=== PATIENT | male | born 1975 | race Hispanic/Latino ===

== ENCOUNTER 2019-11-01 18:33 | Emergency (ER) | payer SELFPAY ==
[2019-11-01] MEDS ORDERED: Nitroglycerin 2% Ointment 1 INCH/1 GM Packet ONE (19:01)
[2019-11-01] MEDS ORDERED: Aspirin Chewable 81 MG TAB ONE (19:01)
[2019-11-01 19:25] LABS: #Basophils 0.1 thou/uL (0.0-0.2); #Eosinphils 0.2 thou/uL (0.0-0.7); #Lymphocytes 2.5 thou/uL (1.20-3.40); #Monocytes 0.6 thou/uL (0.11-0.59); #Neutrophils 1.6 thou/uL (1.40-6.50); %Basophils 1.8 % (0.0-1.0); %Eosinophils 3.8 % (0.0-10.0); %Lymphocytes 49.4 % (21.0-51.0); %Monocytes 12.4 % (0.0-10.0); %Neutrophils 32.5 % (42.0-75.0); Hemoglobin 14.8 g/dL (14.0-18.0); Mean Corpuscular HGB CONC 33.8 g/dL (32.0-36.0); Mean Corpuscular Hemoglobin 33.3 pg (27.0-31.0); Mean Corpuscular Volume 98.5 fL (78.0-98.0); Mean Platelet Volume 8.2 fL (7.4-10.4); Platelet Count 172 thou/uL (130-400); RBC Distribution Width 11.5 % (11.5-14.5); Red Blood Cell (RBC) Count 4.44 mill/uL (4.70-6.10)
--- NOTE | 2019-11-01 19:35 | RAD ---
Chest AP view INDICATION: Intermittent chest pain COMPARISON: None FINDINGS: Lungs:The lungs are clear Cardiac silhouette:The cardiomediastinal silhouette appears within normal limits. Pulmonary vasculature:Normal Pleural spaces:No pleural effusion or pneumothorax is demonstrated. Upper abdomen:No abnormality seen. Osseous structures: No acute osseous abnormality. Additional findings:None. IMPRESSION: No acute cardiopulmonary abnormality.
[2019-11-01 19:47] LABS: ALT (SGPT) 87 U/L (8-55); AST (SGOT) 74 U/L (5-34); Albumin 4.5 g/dL (3.5-5.0); Alkaline Phosphatase 67 U/L (40-110); Anion Gap 15 mmol/L (10-20); BUN (Urea Nitrogen) 7 mg/dL (8.9-20.6); Bilirubin, Total 0.4 mg/dL (0.2-1.2); CK (CPK) 280 U/L (30-200); Calc. Creatinine Clearance 0 mL/min (70-130); Calcium 8.8 mg/dL (7.8-10.44); Carbon Dioxide 24 mmol/L (22-29); Chloride 103 mmol/L (98-107); Estimated GFR-MDRD Greater than 90; Globulin 3.4 g/dL (2.4-3.5); Glucose 97 mg/dL (70-105); Lipase 97 U/L (8-78); Potassium 3.8 mmol/L (3.5-5.1); Protein, Total 7.9 g/dL (6.0-8.3); Sodium 138 mmol/L (136-145)
--- NOTE | 2019-11-01 22:03 | ULT ---
RIGHT UPPER QUADRANT ULTRASOUND CLINICAL HISTORY: Chest pain with elevated lipase and LFTs. COMPARISON: None FINDINGS: Liver:There is diffuse fatty infiltration of the liver Intrahepatic bile ducts: No intrahepatic or extrahepatic biliary dilation.; Common bile duct: 4.8 mm. Gallbladder: Normal appearing. Wyatt's sign:None Main portal vein:Patent with hepatopedal flow. Pancreas:Visualized pancreas appears normal. Right kidney: Right kidney measures 10.9 x 4.9 x 5.5 cm. No focal renal lesion or hydronephrosis. Additional findings: None. IMPRESSION: Fatty liver
== END 2019-11-01 22:20 | disposition home or self-care (01) ==
LOC: ERS 18:33
DX: R07.89 Other chest pain (principal); F10.10 Alcohol abuse, uncomplicated; I10 Essential (primary) hypertension
CPT/HCPCS: 36415; 71045; 76705; 80053; 82550; 83690; 84484; 85025; 93005

== ENCOUNTER 2021-04-01 16:25 | Inpatient (IN) | payer SELFPAY ==
[2021-04-01] MEDS ORDERED: HYDROcodone/Acetaminophen 10/325 mg Tablet ONE (17:04)
[2021-04-01 17:26] LABS: #Lymphocytes 0.8 thou/uL (1.20-3.40); #Monocytes 0.6 thou/uL (0.11-0.59); #Neutrophils 6.1 thou/uL (1.40-6.50); %Basophils 0.4 % (0.0-1.0); %Eosinophils 0.4 % (0.0-10.0); %Lymphocytes 10.5 % (21.0-51.0); %Monocytes 7.5 % (0.0-10.0); %Neutrophils 81.2 % (42.0-75.0); Hemoglobin 12.3 g/dL (14.0-18.0); Mean Corpuscular HGB CONC 36.2 g/dL (32.0-36.0); Mean Corpuscular Hemoglobin 35.7 pg (27.0-31.0); Mean Corpuscular Volume 98.8 fL (78.0-98.0); Mean Platelet Volume 8.1 fL (7.4-10.4); Platelet Count 131 thou/uL (130-400); RBC Distribution Width 11.6 % (11.5-14.5); Red Blood Cell (RBC) Count 3.45 mill/uL (4.70-6.10); White Blood Cell (WBC) Count 7.6 thou/uL (4.8-10.8)
[2021-04-01 17:40] LABS: ALT (SGPT) 79 U/L (8-55); AST (SGOT) 94 U/L (5-34); Albumin 4.1 g/dL (3.5-5.0); Alkaline Phosphatase 60 U/L (40-110); Anion Gap 18 mmol/L (10-20); BUN (Urea Nitrogen) 5 mg/dL (8.9-20.6); Bilirubin, Total 0.4 mg/dL (0.2-1.2); CK (CPK) 647 U/L (30-200); Calc. Creatinine Clearance 0 mL/min (70-130); Calcium 8.1 mg/dL (7.8-10.44); Carbon Dioxide 16 mmol/L (22-29); Chloride 101 mmol/L (98-107); Globulin 3.1 g/dL (2.4-3.5); Glucose 112 mg/dL (70-105); Potassium 3.3 mmol/L (3.5-5.1); Protein, Total 7.2 g/dL (6.0-8.3); Sodium 132 mmol/L (136-145)
[2021-04-01] MEDS ORDERED: Morphine 4 MG/ML VIAL ONE (17:40)
[2021-04-01] MEDS ORDERED: Boostrix 0.5 ML (Tdap) VIAL ONE (17:40)
[2021-04-01 17:43] LABS: PTT 28.7 sec (22.9-36.1); Prothrombin Time 13.3 sec (12.0-14.7)
[2021-04-01] MEDS ORDERED: Dextrose 50% Abboject 50 ML SYRINGE SLOW IVP PRN (19:09)
[2021-04-01] MEDS ORDERED: traMADol HCl 50 MG TAB PO PRN (19:09)
[2021-04-01] MEDS ORDERED: hydrALAZINE 20 MG/ML VIAL SLOW IVP PRN (19:09)
[2021-04-01] MEDS ORDERED: Ondansetron PF 4 MG/2 ML Vial IVP PRN ×2 (19:09→19:15)
[2021-04-01] MEDS ORDERED: Dextrose 5% in Water 1,000 ML IV PRN (19:09)
[2021-04-01] MEDS ORDERED: Morphine 2 MG/ML VIAL SLOW IVP PRN (19:09)
[2021-04-01] MEDS ORDERED: Ondansetron ODT 4 MG TAB PO PRN (19:09)
[2021-04-01] MEDS ORDERED: Ondansetron ODT 4 MG TAB SL PRN (19:15)
[2021-04-01] MEDS ORDERED: D5 1/2 NS w/20 mEq KCL 1,000 ML IV SCH (19:15)
[2021-04-01] MEDS: Ibuprofen 200 MG TAB PO SCH (21:02)
[2021-04-01] MEDS: Oxazepam 10 MG CAP PO SCH (21:03)
[2021-04-01] MEDS: Famotidine 20 MG TAB PO SCH (21:03)
[2021-04-01] MEDS ORDERED: Potassium Chloride 20 MEQ in Premix Bag 1 BAG IVPB SCH (23:00)
[2021-04-01] MEDS: Sodium Chloride 0.9% 1,000 ML IV SCH (23:28)
[2021-04-01] MEDS ORDERED: Sodium Chloride 0.9% 1,000 ML IV SCH (23:55)
[2021-04-02] MEDS: Acetaminophen 325 MG TAB PO SCH ×5 (00:07→23:51)
[2021-04-02] MEDS: traMADol HCl 50 MG TAB PO PRN (03:55)
[2021-04-02] MEDS: Cyclobenzaprine 10 MG TAB PO PRN ×2 (03:55→23:52)
[2021-04-02] MEDS: Oxazepam 10 MG CAP PO SCH ×3 (05:19→20:59)
[2021-04-02] MEDS: Ibuprofen 200 MG TAB PO SCH ×3 (05:20→20:59)
[2021-04-02] MEDS: Sodium Chloride 0.9% 1,000 ML IV SCH (05:29)
[2021-04-02 06:22] LABS: #Lymphocytes 0.8 thou/uL (1.20-3.40); #Monocytes 0.7 thou/uL (0.11-0.59); #Neutrophils 3.2 thou/uL (1.40-6.50); %Basophils 0.8 % (0.0-1.0); %Monocytes 14.3 % (0.0-10.0); Hemoglobin 12.3 g/dL (14.0-18.0); Mean Corpuscular HGB CONC 36.3 g/dL (32.0-36.0); Mean Corpuscular Hemoglobin 35.7 pg (27.0-31.0); Mean Corpuscular Volume 98.6 fL (78.0-98.0); Mean Platelet Volume 8.7 fL (7.4-10.4); Platelet Count 108 thou/uL (130-400); RBC Distribution Width 11.7 % (11.5-14.5); Red Blood Cell (RBC) Count 3.43 mill/uL (4.70-6.10); White Blood Cell (WBC) Count 4.8 thou/uL (4.8-10.8)
[2021-04-02 06:32] LABS: Anion Gap 15 mmol/L (10-20); BUN (Urea Nitrogen) 4 mg/dL (8.9-20.6); Calc. Creatinine Clearance 0 mL/min (70-130); Calcium 7.8 mg/dL (7.8-10.44); Carbon Dioxide 22 mmol/L (22-29); Chloride 96 mmol/L (98-107); Glucose 110 mg/dL (70-105); Potassium 3.2 mmol/L (3.5-5.1); Sodium 130 mmol/L (136-145)
[2021-04-02 08:30] LABS: SARS-CoV-2 NAA Rapid Test Not Detected (NotDetected)
[2021-04-02] MEDS: Thiamine 100 MG TAB PO SCH (08:59)
[2021-04-02] MEDS: Famotidine 20 MG TAB PO SCH ×2 (08:59→20:59)
[2021-04-02] MEDS: Folic Acid 1 MG TAB PO SCH (08:59)
[2021-04-02] MEDS ORDERED: Sodium Bicarbonate 150 MEQ in Dextrose 5% in Water 1,000 ML IV SCH (23:00)
[2021-04-03 05:28] LABS: #Eosinphils 0.1 thou/uL (0.0-0.7); #Lymphocytes 0.9 thou/uL (1.20-3.40); #Monocytes 0.5 thou/uL (0.11-0.59); #Neutrophils 2.6 thou/uL (1.40-6.50); %Basophils 0.8 % (0.0-1.0); %Eosinophils 2.9 % (0.0-10.0); %Lymphocytes 21.1 % (21.0-51.0); %Monocytes 11.1 % (0.0-10.0); Hemoglobin 12.1 g/dL (14.0-18.0); Mean Corpuscular HGB CONC 35.8 g/dL (32.0-36.0); Mean Corpuscular Hemoglobin 35.5 pg (27.0-31.0); Mean Corpuscular Volume 99.2 fL (78.0-98.0); Mean Platelet Volume 8.8 fL (7.4-10.4); Platelet Count 112 thou/uL (130-400); RBC Distribution Width 11.5 % (11.5-14.5); Red Blood Cell (RBC) Count 3.41 mill/uL (4.70-6.10); White Blood Cell (WBC) Count 4.1 thou/uL (4.8-10.8)
[2021-04-03 05:36] LABS: Anion Gap 14 mmol/L (10-20); BUN (Urea Nitrogen) 7 mg/dL (8.9-20.6); CK (CPK) 632 U/L (30-200); Calc. Creatinine Clearance 0 mL/min (70-130); Calcium 8.7 mg/dL (7.8-10.44); Carbon Dioxide 23 mmol/L (22-29); Chloride 103 mmol/L (98-107); Glucose 131 mg/dL (70-105); Magnesium 2.2 mg/dL (1.6-2.6); Phosphorus 3.6 mg/dL (2.3-4.7); Potassium 3.9 mmol/L (3.5-5.1); Sodium 136 mmol/L (136-145)
[2021-04-03] MEDS: Acetaminophen 325 MG TAB PO SCH ×4 (05:41→23:16)
[2021-04-03] MEDS: Ibuprofen 200 MG TAB PO SCH ×3 (05:42→20:30)
[2021-04-03] MEDS: Oxazepam 10 MG CAP PO SCH ×3 (06:26→23:16)
[2021-04-03] MEDS: traMADol HCl 50 MG TAB PO PRN (08:48)
[2021-04-03] MEDS: Famotidine 20 MG TAB PO SCH ×2 (08:52→23:09)
[2021-04-03] MEDS: Senokot S 8.6-50 MG TAB PO SCH ×2 (08:52→20:31)
[2021-04-03] MEDS: Polyethylene Glycol 3350 17 GM Packet PO SCH (08:52)
[2021-04-03] MEDS: Folic Acid 1 MG TAB PO SCH (08:52)
[2021-04-03] MEDS: Thiamine 100 MG TAB PO SCH (08:53)
[2021-04-03] MEDS: Sodium Chloride 1 GM TAB PO SCH ×3 (08:53→23:16)
[2021-04-03] MEDS ORDERED: CEFAZOLIN 2 GM in Premix Bag 1 BAG IVPB SCH (09:30)
[2021-04-04] MEDS: Acetaminophen 325 MG TAB PO SCH ×4 (05:23→23:35)
[2021-04-04] MEDS: Oxazepam 10 MG CAP PO SCH ×3 (05:24→21:51)
[2021-04-04] MEDS: Ibuprofen 200 MG TAB PO SCH ×3 (05:24→21:50)
[2021-04-04 05:34] LABS: #Basophils 0.1 thou/uL (0.0-0.2); #Eosinphils 0.2 thou/uL (0.0-0.7); #Lymphocytes 1.2 thou/uL (1.20-3.40); #Monocytes 0.7 thou/uL (0.11-0.59); #Neutrophils 2.3 thou/uL (1.40-6.50); %Basophils 1.9 % (0.0-1.0); %Eosinophils 4.4 % (0.0-10.0); %Lymphocytes 26.1 % (21.0-51.0); %Monocytes 14.8 % (0.0-10.0); %Neutrophils 52.8 % (42.0-75.0); Hemoglobin 11.9 g/dL (14.0-18.0); Mean Corpuscular HGB CONC 36.1 g/dL (32.0-36.0); Mean Corpuscular Volume 99.6 fL (78.0-98.0); Mean Platelet Volume 9.1 fL (7.4-10.4); Platelet Count 132 thou/uL (130-400); RBC Distribution Width 11.6 % (11.5-14.5); White Blood Cell (WBC) Count 4.4 thou/uL (4.8-10.8)
[2021-04-04 07:14] LABS: Chloride 103 mmol/L (98-107); Potassium 3.5 mmol/L (3.5-5.1); Sodium 139 mmol/L (136-145)
[2021-04-04 07:15] LABS: Glucose 133 mg/dL (70-105)
[2021-04-04 07:17] LABS: Anion Gap 15 mmol/L (10-20); Carbon Dioxide 25 mmol/L (22-29)
[2021-04-04 07:18] LABS: Calc. Creatinine Clearance 0 mL/min (70-130); Phosphorus 3.8 mg/dL (2.3-4.7)
[2021-04-04 07:19] LABS: BUN (Urea Nitrogen) 6 mg/dL (8.9-20.6)
[2021-04-04 07:20] LABS: Magnesium 1.9 mg/dL (1.6-2.6)
[2021-04-04 07:21] LABS: CK (CPK) 593 U/L (30-200)
[2021-04-04] MEDS: Senokot S 8.6-50 MG TAB PO SCH ×2 (08:32→20:10)
[2021-04-04] MEDS: Polyethylene Glycol 3350 17 GM Packet PO SCH (08:32)
[2021-04-04] MEDS: Sodium Chloride 1 GM TAB PO SCH ×2 (08:49→20:44)
[2021-04-04] MEDS: Thiamine 100 MG TAB PO SCH (08:49)
[2021-04-04] MEDS: Folic Acid 1 MG TAB PO SCH (08:49)
[2021-04-04] MEDS: Famotidine 20 MG TAB PO SCH ×2 (08:50→20:10)
[2021-04-04] MEDS ORDERED: Midazolam HCl 2 mg/2 ml Vial ONE (09:27)
[2021-04-04] MEDS ORDERED: Fentanyl 100 MCG/2 ML VIAL ONE ×2 (10:11→15:19)
[2021-04-04] MEDS ORDERED: Bupivacaine PF 0.5% 30 ML VIAL ONE (12:47)
[2021-04-04] MEDS ORDERED: PROPOFOL 200 MG/20 ML VIAL ONE (13:15)
[2021-04-04] MEDS ORDERED: Dexamethasone 20 MG/5 ML VIAL ONE (13:15)
[2021-04-04] MEDS ORDERED: Ondansetron PF 4 MG/2 ML Vial ONE (13:15)
[2021-04-04] MEDS ORDERED: Lidocaine 1% PF 5 ML VIAL ONE (13:15)
[2021-04-04] MEDS ORDERED: Ondansetron HCl/PF 4 MG/2 ML Vial IVP PRN (13:42)
[2021-04-04] MEDS ORDERED: Promethazine HCl 25 MG/ML VIAL IVPB PRN (13:42)
[2021-04-04] MEDS ORDERED: HYDROmorphone 2 MG/ML VIAL SLOW IVP PRN (13:42)
[2021-04-04] MEDS ORDERED: Meperidine HCl/PF 25 MG/ML VIAL SLOW IVP PRN (13:42)
[2021-04-04] MEDS ORDERED: Labetalol HCl 100 MG/20 ML VIAL SLOW IVP PRN (13:42)
[2021-04-04] MEDS: Cyclobenzaprine 10 MG TAB PO PRN (16:17)
[2021-04-04] MEDS: traMADol HCl 50 MG TAB PO PRN (17:30)
[2021-04-04] MEDS: CEFAZOLIN 2 GM in Premix Bag 1 BAG IVPB SCH (23:36)
[2021-04-05] MEDS: Acetaminophen 325 MG TAB PO SCH ×2 (04:58→12:33)
[2021-04-05] MEDS: Ibuprofen 200 MG TAB PO SCH ×2 (04:59→15:17)
[2021-04-05] MEDS: Oxazepam 10 MG CAP PO SCH ×2 (05:00→15:17)
[2021-04-05 05:57] LABS: #Lymphocytes 1.2 thou/uL (1.20-3.40); #Monocytes 1.2 thou/uL (0.11-0.59); #Neutrophils 5.9 thou/uL (1.40-6.50); %Basophils 0.2 % (0.0-1.0); %Eosinophils 0.4 % (0.0-10.0); %Lymphocytes 14.7 % (21.0-51.0); %Monocytes 14.2 % (0.0-10.0); %Neutrophils 70.5 % (42.0-75.0); Hemoglobin 10.8 g/dL (14.0-18.0); Mean Corpuscular HGB CONC 33.4 g/dL (32.0-36.0); Mean Corpuscular Hemoglobin 33.2 pg (27.0-31.0); Mean Corpuscular Volume 99.5 fL (78.0-98.0); Mean Platelet Volume 8.2 fL (7.4-10.4); Platelet Count 177 thou/uL (130-400); RBC Distribution Width 11.6 % (11.5-14.5); Red Blood Cell (RBC) Count 3.24 mill/uL (4.70-6.10); White Blood Cell (WBC) Count 8.4 thou/uL (4.8-10.8)
[2021-04-05] MEDS: CEFAZOLIN 2 GM in Premix Bag 1 BAG IVPB SCH (09:20)
[2021-04-05] MEDS: Polyethylene Glycol 3350 17 GM Packet PO SCH (09:21)
[2021-04-05] MEDS: Thiamine 100 MG TAB PO SCH (09:21)
[2021-04-05] MEDS: traMADol HCl 50 MG TAB PO PRN ×2 (09:22→15:17)
[2021-04-05] MEDS: Folic Acid 1 MG TAB PO SCH (09:22)
[2021-04-05] MEDS: Senokot S 8.6-50 MG TAB PO SCH (09:22)
[2021-04-05] MEDS: Cyclobenzaprine 10 MG TAB PO PRN (12:34)
[2021-04-05 16:28] VITALS: BP 143/94; TEMP 99.1
== END 2021-04-05 17:47 | disposition home or self-care (01) | DRG 493 ==
LOC: ERS 16:25 → SURG A 18:06
PROVIDERS: ADMIT Surgery; ATTEND Surgery
PROC: 0QSG04Z Reposition Right Tibia with Internal Fixation Device, Open Approach (ICD-10-PCS; principal; 2021-04-04)
DX: S82.141A Displaced bicondylar fracture of right tibia, initial encounter for closed fracture (principal); M62.82 Rhabdomyolysis; E87.1 Hypo-osmolality and hyponatremia; Z20.822 Contact with and (suspected) exposure to COVID-19; I10 Essential (primary) hypertension; S82.401A Unspecified fracture of shaft of right fibula, initial encounter for closed fracture; F10.10 Alcohol abuse, uncomplicated; E78.00 Pure hypercholesterolemia, unspecified; W11.XXXA Fall on and from ladder, initial encounter; Z91.14 Patient's other noncompliance with medication regimen
CPT/HCPCS: 36415; 71045; 80048; 80053; 82550; 83605; 83735; 84100; 85025; 85610; 85730; 90471; 90715; 93005; 96374; C1713; J0360; J0690; J1100; J2250; J2270; J2405; J2704; J3010; J3480; J7070; S0020; U0002; U0005

== ENCOUNTER 2021-04-29 17:07 | Emergency (ER) | payer SELFPAY ==
[2021-04-29 19:34] LABS: #Basophils 0.1 thou/uL (0.0-0.2); #Eosinphils 0.1 thou/uL (0.0-0.7); #Monocytes 0.7 thou/uL (0.11-0.59); #Neutrophils 4.5 thou/uL (1.40-6.50); %Basophils 0.9 % (0.0-1.0); %Eosinophils 1.6 % (0.0-10.0); %Lymphocytes 27.6 % (21.0-51.0); %Monocytes 8.8 % (0.0-10.0); %Neutrophils 61.1 % (42.0-75.0); Hemoglobin 14.7 g/dL (14.0-18.0); Mean Corpuscular HGB CONC 35.5 g/dL (32.0-36.0); Mean Corpuscular Hemoglobin 34.3 pg (27.0-31.0); Mean Corpuscular Volume 96.7 fL (78.0-98.0); Mean Platelet Volume 7.5 fL (7.4-10.4); Platelet Count 243 thou/uL (130-400); Red Blood Cell (RBC) Count 4.29 mill/uL (4.70-6.10); White Blood Cell (WBC) Count 7.4 thou/uL (4.8-10.8)
[2021-04-29] MEDS ORDERED: Lidocaine 1% PF 5 ML VIAL ONE (20:41)
[2021-04-29] MEDS ORDERED: cefTRIAXone\\ROCEPHIN 1 GM VIAL ONE (20:41)
== END 2021-04-29 21:14 | disposition home or self-care (01) ==
LOC: ERS 17:07
DX: L03.115 Cellulitis of right lower limb (principal); I10 Essential (primary) hypertension
CPT/HCPCS: 36415; 85025; 86140; 96372; J0696

== ENCOUNTER 2022-07-02 15:50 | Emergency (ER) | payer SELFPAY ==
[2022-07-02] MEDS ORDERED: Boostrix 0.5 ML (Tdap) VIAL (>/=7 yrs of age) ONE (16:10)
== END 2022-07-02 16:59 | disposition home or self-care (01) ==
LOC: ERS 15:50
DX: S62.320A Displaced fracture of shaft of second metacarpal bone, right hand, initial encounter for closed fracture (principal); I10 Essential (primary) hypertension; Z23 Encounter for immunization; W26.8XXA Contact with other sharp object(s), not elsewhere classified, initial encounter; Y99.0 Civilian activity done for income or pay
CPT/HCPCS: 29130; 90715

== ENCOUNTER 2023-11-14 18:54 | Emergency (ER) | payer SELFPAY ==
[2023-11-14 20:15] LABS: Hematocrit 33.9 % (42.0-52.0); Hemoglobin 12.1 g/dL (14.0-18.0); Manual Diff?? YES; Mean Corpuscular HGB CONC 35.7 g/dL (32.0-36.0); Mean Corpuscular Hemoglobin 33.5 pg (27.0-31.0); Mean Corpuscular Volume 93.9 fl (78.0-98.0); Mean Platelet Volume 9.9 fL (7.4-10.4); Platelet Count 124 10x3/uL (130-400); Red Blood Cell (RBC) Count 3.61 mill/uL (4.70-6.10); White Blood Cell (WBC) Count 1.9 10x3/uL (4.8-10.8)
[2023-11-14 20:21] LABS: Delete Auto Diff?? YES
[2023-11-14 20:31] LABS: ALT (SGPT) 104 U/L (8-55); AST (SGOT) 117 U/L (5-34); Albumin 4.1 g/dL (3.5-5.0); Alkaline Phosphatase 75 U/L (40-110); Anion Gap 16 mmol/L (10-20); BUN (Urea Nitrogen) 4 mg/dL (8.9-20.6); Bilirubin, Total 0.5 mg/dL (0.2-1.2); Calc. Creatinine Clearance 0 mL/min (70-130); Calcium 7.6 mg/dL (7.8-10.44); Carbon Dioxide 21 mmol/L (22-29); Chloride 94 mmol/L (98-107); Estimated GFR 115; Glucose 106 mg/dL (70-105); Lipase 48 U/L (8-78); Potassium 2.8 mmol/L (3.5-5.1); Protein, Total 7.1 g/dL (6.0-8.3); Sodium 128 mmol/L (136-145)
[2023-11-14 20:32] LABS: Acetaminophen Less than 10 mcg/mL (10.0-30.0); Alcohol 304.1 mg/dL (Less than 10); Salicylate Less than 8.0 mg/dL (15.0-30.0)
[2023-11-14 20:35] LABS: Troponin I Less than 0.010 ng/mL (< 0.028)
[2023-11-14 20:42] LABS: Band 5 % (5-11); CellaVision Operator ID LAB.KB; Eosinophils 2 % (0-10); Large Platelets 23.5 % (0-5); Lymphocytes 26 % (21-51); Monocytes 10 % (0-10); Neutrophil 55 % (42-75); Platelet Adequacy Comment Platelets Decreased; Polychromasia SLIGHT = 2-3 cells HPF (0-2); Reactive Lymphocytes 1 % (0-10); Smudge Cells 26.5 %; Stomatocytes SLIGHT = 2-5 cells HPF (0-1); Total Cell Count 98
[2023-11-14] MEDS ORDERED: Potassium Bicarbonate/Cit Ac 25 MEQ TAB ONE (22:16)
== END 2023-11-14 23:25 | disposition home or self-care (01) ==
LOC: ERS 18:54
DX: F10.129 Alcohol abuse with intoxication, unspecified (principal); E87.6 Hypokalemia; E87.1 Hypo-osmolality and hyponatremia; I10 Essential (primary) hypertension; W19.XXXA Unspecified fall, initial encounter; Z75.8 Other problems related to medical facilities and other health care
CPT/HCPCS: 36415; 70450; 71045; 72125; 80053; 80307; 83690; 84484; 85025; 93005